=== PATIENT | male | born 1995 | race Caucasian/White ===

== ENCOUNTER 2019-01-28 17:36 | Emergency (ER) | payer BC, OTHER ==
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
== END 2019-01-28 19:26 | disposition home or self-care (01) ==
LOC: MW.ED 17:36
DX: S49.91XA Unspecified injury of right shoulder and upper arm, initial encounter (principal); V00.141A Fall from scooter (nonmotorized), initial encounter
CPT/HCPCS: 73030-26-RT; 73030-RT; 99283-25